=== PATIENT | female | born 1965 | race Hispanic/Latino ===

== ENCOUNTER → 2024-08-21 | Day surgery (SDC) | payer OTHER ==
[~2024-08-21] MED LIST: DEXAMETHASONE SOD PHOS INJ 4 MG/ML SDV ONE; FENTANYL CITRATE/PF 100MCG/2 ML INJ ONE; KETOROLAC TROMETHAMINE 30 MG/ML VIAL ONE; LIDOCAINE HCL 2% LOCAL INJ 5 ML SDV VIAL INJ ONE; MIDAZOLAM HCL 2 MG/2 ML VIAL ONE; ONDANSETRON HCL INJ 2MG/ML 2ML 2 MG/ML VIAL ONE; PROPOFOL IV EMULSION 10 MG/ML 20 ML VIAL ONE; SEVOFLURANE INHAL SOLN 250 ML PEN BTL ONE; VYVANSE60 MG PO
[2024-08-21] MEDS: LACTATED RINGER'S 1,000 ML ONE (09:28)
[2024-08-21] MEDS: FENTANYL CITRATE/PF 100MCG/2 ML INJ ONE (12:12)
[2024-08-21] MEDS: HYDROCODONE/APAP 7.5MG-325MG 1 EA TAB ONE (12:27)
[2024-08-21 12:56] VITALS: BP 136/81; PULSE 81; RESP 19; O2SAT 97
== END | disposition home or self-care (01) ==
LOC: OR 08:35
PROVIDERS: ATTEND Specialist
DX: M22.2X1 Patellofemoral disorders, right knee (principal); S83.241A Other tear of medial meniscus, current injury, right knee, initial encounter; J45.909 Unspecified asthma, uncomplicated; F90.9 Attention-deficit hyperactivity disorder, unspecified type; X58.XXXA Exposure to other specified factors, initial encounter; Z01.810 Encounter for preprocedural cardiovascular examination; Z79.899 Other long term (current) drug therapy
CPT/HCPCS: 29873; 29881; 93005; J0690; J1100; J1885; J2003; J2250; J2704; J3010; J7121; J2405